=== PATIENT | female | born 1985 | race American Indian/Alaskan Native ===

== ENCOUNTER 2018-01-10 14:20 | Emergency (ER) | payer OTHER ==
[2018-01-10 15:37] LABS: Bacteria,Urine 1+ /HPF (Negative); Bilirubin,Urine NEG (Negative); Blood,Urine NEG (Negative); Color,Urine Yellow (Yellow); Protein,Urine <15 mg/dL mg/dL (Negative); Urobilinogen,Urine < 2.0 mg/dL (<2.0)
[2018-01-10] MEDS ORDERED: NACL 0.9% 1000 ML 1,000 ML IV ONE ×2 (16:45→19:44)
--- NOTE | 2018-01-10 17:01 | Emergency Department Report ---
Blank Doc - Documentation Documentation: Patient is a 32-year-old [place] female who has a confirmed was not know how far along she is complaining of left lower quadrant discomfort and some dizziness when she stands. Patient will be moved to the treatment area to get IV fluids and orthostatics. Ultrasound be performed to rule out ectopic. URINALYSIS will be performed as well rule out UTI.
[2018-01-10 17:10] LABS: Basophils # (Auto) 0.1 K/mm3 (0.0-0.1); Basophils % (Auto) 0.9 % (0.0-1.8); Eosinophils % (Auto) 0.4 % (0.0-4.3); Hematocrit 41.2 % (30.3-42.9); Hemoglobin 13.3 gm/dl (10.1-14.3); Lymphocytes # (Auto) 4.4 K/mm3 (1.2-5.4); Mean Corpuscular HGB Conc 32 % (30-34); Mean Corpuscular Hemoglobin 26 pg (28-32); Mean Corpuscular Volume 81 fl (79-97); Monocytes # (Auto) 0.6 K/mm3 (0.0-0.8); Monocytes % (Auto) 6.8 % (0.0-7.3); Platelet Count 205 K/mm3 (140-440); Red Blood Count 5.11 M/mm3 (3.65-5.03); Red Cell Distribution Width 13.7 % (13.2-15.2)
[2018-01-10 17:27] LABS: BUN/Creatinine Ratio 15; Blood Urea Nitrogen 6 mg/dL (7-17); Calcium 10.5 mg/dL (8.4-10.2); Hemolysis Index 9
--- NOTE | 2018-01-10 19:14 | Emergency Department Report ---
ED Dizziness HPI - General Chief Complaint: Dizziness Stated Complaint: DIZZY Time Seen by Provider: 01/10/18 16:35 Source: patient Mode of arrival: Ambulatory Limitations: No Limitations - History of Present Illness Initial Comments: This is a 32-year-old female nontoxic, well nourished in appearance, no acute signs of distress presents to the ED with c/o of dizziness and left lower pelvic pain x4 days. Patient describes pain as cramping. Patient stated she is currently about 6 weeks . Patient denies any vaginal bleeding, back pain , dsyuria, polyuria, hematuria. Patient denies any chest pain, shortness of breathe, fever, chills, headache, stiff neck, abdominal desouza. Patient denies any allergies or PMH. MD Complaint: dizziness -: days(s) (4) Timing: gradual onset History of Same: No History of Trauma: No Severity: mild Improves With: nothing Worsens With: nothing Associated Symptoms: denies other symptoms. denies: ataxia, chest pain, confusion, cough, diaphoresis, fever/chills, loss of appetite, malaise, rash, seizure, shortness of breath, syncope, weakness - Related Data Previous Rx's Medication Instructions Recorded Last Taken Type Metoclopramide [Reglan] 10 mg PO TID PRN #30 tab 01/10/18 Unknown Rx Allergies Allergy/AdvReac Type Severity Reaction Status Date / Time No Known Allergies Allergy Unverified 01/10/18 14:28 ED Review of Systems ROS: Stated complaint: DIZZY Other details as noted in HPI Constitutional: denies: chills, fever Eyes: denies: eye pain, eye discharge, vision change ENT: denies: ear pain, throat pain Respiratory: denies: cough, shortness of breath, wheezing Cardiovascular: denies: chest pain, palpitations Endocrine: no symptoms reported Gastrointestinal: denies: abdominal pain, nausea, diarrhea Genitourinary: denies: urgency, dysuria, discharge Musculoskeletal: denies: back pain, joint swelling, arthralgia Skin: denies: rash, lesions Neurological: denies: headache, weakness, paresthesias Psychiatric: denies: anxiety, depression Hematological/Lymphatic: denies: easy bleeding, easy bruising ED Past Medical Hx - Past Medical History Previous Medical History?: No - Surgical History Past Surgical History?: No - Social History Smoking Status: Never Smoker Substance Use Type: None - Medications Home Medications: Home Medications Medication Instructions Recorded Confirmed Last Taken Type Metoclopramide [Reglan] 10 mg PO TID PRN #30 tab 01/10/18 Unknown Rx ED Physical Exam - General Limitations: No Limitations General appearance: alert, in no apparent distress - Head Head exam: Present: atraumatic, normocephalic - Eye Eye exam: Present: normal appearance Pupils: Present: normal accommodation - ENT ENT exam: Present: normal exam, mucous membranes moist, TM's normal bilaterally , normal external ear exam - Neck Neck exam: Present: normal inspection, full ROM. Absent: tenderness, meningismus, lymphadenopathy - Respiratory Respiratory exam: Present: normal lung sounds bilaterally. Absent: respiratory distress, wheezes, rales, rhonchi, stridor, chest wall tenderness, accessory muscle use, decreased breath sounds, prolonged expiratory - Cardiovascular Cardiovascular Exam: Present: regular rate, normal rhythm, normal heart sounds. Absent: irregular rhythm, systolic murmur, diastolic murmur, rubs, gallop - GI/Abdominal GI/Abdominal exam: Present: soft, normal bowel sounds. Absent: distended, tenderness, guarding, rebound, rigid, diminished bowel sounds - Expanded GI/Abdominal Exam Expanded GI/Abdominal exam: Absent: psoas sign, obturator sign, heel tap sign, Jackson's sign, Rovsing's sign, tenderness at Mcburney's Point, ascites - Rectal Rectal exam: Present: deferred - Extremities Exam Extremities exam: Present: normal inspection, full ROM, normal capillary refill - Back Exam Back exam: Present: normal inspection, full ROM. Absent: tenderness, CVA tenderness (R), CVA tenderness (L), muscle spasm, paraspinal tenderness, vertebral tenderness, rash noted - Neurological Exam Neurological exam: Present: alert, oriented X3, normal gait - Psychiatric Psychiatric exam: Present: normal affect, normal mood - Skin Skin exam: Present: warm, dry, intact, normal color. Absent: rash ED Course Vital Signs 01/10/18 01/10/18 14:23 19:25 Temperature 98.7 F Pulse Rate 104 H Pulse Rate [ 69 Sitting] Respiratory 18 Rate Blood Pressure 110/73 Blood Pressure 88/51 [Sitting] O2 Sat by Pulse 100 Oximetry - Reevaluation(s) Reevaluation #1: 01/10/18 19:34 Patient is speaking in full sentences with no signs of distress noted. Reevaluation #2: 01/10/18 19:37 Patient stated symptoms of dizziness has subsided after 1L of normal saline. - Consultations Consultation #1: 01/10/18 19:34 Patient has been consulted with Dr. De León about patient history, physical exam , and labs and examined and screened patient and agrees to ED plan of care and discharge plan of care. ED Medical Decision Making - Lab Data Result diagrams: 01/10/18 16:57 01/10/18 16:57 - Medical Decision Making This is a 32-year-old female that presents with dizziness and lower pelvic cramping and slight orthostatic hypotension. Patient is stable and was examined by me and . Mazin during my interview patient stated dizziness and pelvic pain subsided after 1L of normal saline. OB US and transvaginal obtained and dictated by radiologist within normal limits. Patient received 2L of Normal saline and orthostatic vitals improved prior to discharge. Patient is notified of the results with no questions noted. Patient was instructed to increase hydration and was referred to Follow-up with a INTERNET MANAGER in 3-5 days or if symptoms worsen and continue return to emergency room as soon as possible. At time of discharge, the patient does not seem toxic or ill in appearance. No acute signs of distress noted. Patient agrees to discharge treatment plan of care. No further questions noted by the patient. Critical care attestation.: If time is entered above; I have spent that time in minutes in the direct care of this critically ill patient, excluding procedure time. ED Disposition Clinical Impression: Dizziness, Pelvic cramping, Orthostatic hypotension Qualifiers: Weeks of gestation: unspecified Qualified Code(s): Z34.90 - Encounter for supervision of normal , unspecified, unspecified trimester Disposition: DC-01 TO HOME OR SELFCARE Is pt being admited?: No Does the pt Need Aspirin: No Condition: Stable Instructions: (ED), Hypotension (ED), Dizziness (ED) Additional Instructions: Follow-up with a INTERNET MANAGER in 3-5 days or if symptoms worsen and continue return to emergency room as soon as possible. Increase hydration. Prescriptions: Metoclopramide [Reglan] 10 mg PO TID PRN #30 tab PRN Reason: Nausea Referrals: PRIMARY CARE, [Primary Care Provider] - 3-5 Days SHONDA HOUGH MD [Staff Physician] - 3-5 Days [facility] [Provider Group] - 3-5 Days [facility] [Outside] - 3-5 Days Forms: Work/School Release Form(ED)
[2018-01-10 19:26] VITALS: BP 88/51
--- NOTE | 2018-01-10 19:46 | Ultrasound Report ---
FINAL REPORT PROCEDURE: Transabdominal obstetrical ultrasound. TECHNIQUE: Real-time transabdominal sonography of the uterus, placenta, amniotic fluid, adnexa, and fetus was performed with image documentation. Measurements were obtained to determine age/size. M-mode Doppler was used to document heartbeat. CPT 78364 HISTORY: with left lower quadrant pain. COMPARISON: No prior studies are available for comparison. FINDINGS: The uterus measures 9.4 centimeters x 5.8 centimeters x 6.0 centimeters. The myometrium is unremarkable. There is an intrauterine gestational sac. A yolk sac and pole are visible. Cardiac activity is documented at 127 beats per minute. The crown-rump length measurement is 8.6 millimeters. This indicates a menstrual age of 6 weeks 6 days. The estimated date of confinement is 08/30/2018. Both ovaries appear normal in size. The left ovary contains small follicles. The right ovary contains a cyst measuring 2.5 centimeters in diameter. IMPRESSION: Viable intrauterine . Right ovarian cyst.
--- NOTE | 2018-01-10 19:56 | Ultrasound Report ---
FINAL REPORT PROCEDURE: Transvaginal obstetrical ultrasound. TECHNIQUE: Real-time transvaginal sonography of the uterus, placenta, amniotic fluid, adnexa, and fetus was performed with image documentation. Measurements were obtained to determine age/size. M-mode Doppler was used to document heartbeat. CPT 13389 HISTORY: with left lower quadrant pain. COMPARISON: No prior studies are available for comparison. FINDINGS: The myometrium is unremarkable. There is an intrauterine gestational sac. A yolk sac and pole are visible. Cardiac activity is documented at 127 beats per minute. The crown-rump length measurement is 8.6 millimeters. This indicates a menstrual age of 6 weeks 6 days. The estimated date of confinement is 08/30/2018. The left ovary appears normal. The right ovary contains a simple cyst with a maximum diameter of 2.46 centimeters. IMPRESSION: Viable intrauterine with a menstrual age of 6 weeks 6 days. Right ovarian cyst.
== END 2018-01-10 21:40 | disposition home or self-care (01) ==
LOC: ED 14:20
DX: O26.891 Other specified pregnancy related conditions, first trimester (principal); I95.1 Orthostatic hypotension; R10.2 Pelvic and perineal pain; Z3A.01 Less than 8 weeks gestation of pregnancy
CPT/HCPCS: 36415; 76801; 76817; 80048; 81001; 84702; 85025; 96360; 96361; 99284; J7030